=== PATIENT | female | born 1955 | race African-American/Black ===

== ENCOUNTER 2017-09-30 10:14 | Emergency (ER) | payer MEDICARE, OTHER ==
--- NOTE | 2017-09-30 13:25 | ULT ---
LEFT LOWER EXTREMITY VENOUS DOPPLER ULTRASOUND: 09/30/17. HISTORY: Edema and pain, assess for DVT. TECHNIQUE: Multiplanar castorena scale sonographic imaging of the venous structures of the left lower extremity obtai jer with color flow and spectral analysis. FINDINGS: Left common femoral vein, greater saphenous vein, profunda femoral vein, femoral vein, popliteal vein , and posterior tibial vein are patent. There is normal blood flow, augmentation, and compression wi thin the deep venous system of the left lower extremity. No evidence for left lower extremity DVT. IMPRESSION: No evidence for deep venous thrombosis of the left lower extremity. POS: [facility]
== END 2017-09-30 11:12 | disposition home or self-care (01) ==
LOC: ERS 10:14
DX: M25.472 Effusion, left ankle (principal); E78.5 Hyperlipidemia, unspecified; F32.9 Major depressive disorder, single episode, unspecified; F17.210 Nicotine dependence, cigarettes, uncomplicated; I10 Essential (primary) hypertension; J44.9 Chronic obstructive pulmonary disease, unspecified
CPT/HCPCS: 99406

== ENCOUNTER 2018-09-13 10:20 | Outpatient (CLI) | payer MEDICARE, MEDICAID ==
--- NOTE | 2018-09-13 13:31 | ULT ---
ABDOMINAL ULTRASOUND COMPLETE: History: 62-year-old female with history of cirrhosis and abdominal pain. FINDINGS: Liver echogenicity appears to be within normal limits. The gallbladder has been removed. Common bile duct 0.5 cm without intrahepatic ductal dilatation. No focal liver masses. Visualized pancreas, splee n, aorta, and IVC are unremarkable. No renal hydronephrosis. 1 cm diameter right renal cyst. No absc ess or abnormal fluid collection. IMPRESSION: Status post cholecystectomy. No ductal dilatation. Small right renal cyst. No other significant abnor mality. Atherosclerosis of the aorta with some fairly extensive calcification. POS: [facility]
== END 2018-09-13 10:21 | disposition home or self-care (01) ==
LOC: BICULT 10:20
PROVIDERS: ATTEND Internal Medicine
DX: K70.30 Alcoholic cirrhosis of liver without ascites (principal); R10.30 Lower abdominal pain, unspecified; K52.9 Noninfective gastroenteritis and colitis, unspecified; R68.81 Early satiety; K42.9 Umbilical hernia without obstruction or gangrene; N28.1 Cyst of kidney, acquired; I70.0 Atherosclerosis of aorta; Z90.49 Acquired absence of other specified parts of digestive tract
CPT/HCPCS: 76700

== ENCOUNTER 2022-09-20 09:30 | Outpatient (CLI) | payer MEDICARE, MEDICAID | END 2022-09-20 09:31 | disposition home or self-care (01) | LOC: BICULT 09:30 | PROVIDERS: ATTEND Internal Medicine | DX: K70.30 Alcoholic cirrhosis of liver without ascites (principal); K59.00 Constipation, unspecified; N28.1 Cyst of kidney, acquired | CPT/HCPCS: 76700 ==

== ENCOUNTER 2024-01-11 09:44 | Outpatient (CLI) | payer OTHER, MEDICAID | END 2024-01-11 09:45 | disposition home or self-care (01) | LOC: BICULT 09:44 | PROVIDERS: ATTEND Physician Assistant Medical | DX: K70.30 Alcoholic cirrhosis of liver without ascites (principal); K59.00 Constipation, unspecified; R93.2 Abnormal findings on diagnostic imaging of liver and biliary tract; Z85.118 Personal history of other malignant neoplasm of bronchus and lung | CPT/HCPCS: 76700 ==